=== PATIENT | female | born 1935 | race Caucasian/White ===

== ENCOUNTER 2016-11-27 17:07 | Observation (INO) | payer BC ==
--- NOTE | ~2016-11-27 | HP ---
History And Physical [place] [id number] [facility] [place]. [address] NAME: ALEJANDRA JESUS : 39 STATUS : ADM [place]de PAT#: [id number] AGE: 81 ADM/REG DATE : 11/27/16 MR#: [id number] REPORT SERV DATE: 11/28/16 DICTATED BY: ZAIRA MONZON DATE: 11/28/16 REPORT STATUS : Draft TRANSCRIBED BY: MODL DATE: 11/28/16 DATE OF ADMISSION: 11/27/2016 CHIEF COMPLAINT: Substernal chest heaviness and bilateral arm pain. HISTORY OF PRESENT ILLNESS: This is a very pleasant 81-year-old white female with no known history of CAD, states that on November 27 around 1100 hours, she experienced a debilitating chest pain that radiated down both arms to her elbows. She also reports significant fatigue and she was seen at her PCP's office. Her symptoms were disclosed, and she was sent to the emergency room via EMS. Aspirin was provided. She describes associated nausea and dizziness. Denies shortness of breath, diaphoresis, or belching. She describes the midsternal chest pain as a heaviness radiated down both arms to her elbows at its most intense, she rated it an 8/10. At the time of interview in the [facility], she rates it a 1/10. There has been no clear change in her activity except recently relocating indoor plants to the outside weighing less than 10 pounds. She denies any personal history of myocardial infarction, stroke, DVT, or pulmonary embolus. The patient was recently treated with Bactrim for UTI and states she felt nauseous and fatigue with that antibiotic, rarely has palpitations, consumes two cups of coffee some days. No syncopal episodes. Denies PND or orthopnea. PAST MEDICAL HISTORY: 1. Hypertension. 2. Cholesterol, followed by PCP. 3. Denies diabetes. 4. Depression following the of her . 5. Glaucoma. 6. Positive family history for early CAD. PAST SURGICAL HISTORY: 1. Tonsillectomy. 2. Breast augmentation. 3. Hysterectomy. 4. Cataract repair. SOCIAL HISTORY: She is with two children. She is a retired teacher. Does not have a structured exercise routine. Denies tobacco or illicits. Consumes one to two glasses of wine most days. FAMILY HISTORY: Mother with a heart attack in her 40s of a stroke in her 60s, at the age of 92. REVIEW OF SYSTEMS: A fourteen-point review of systems performed, significant for HPI. No other contributory diagnoses identified. History And Physical [address] [place]. [address] NAME: ALEJANDRA JESUS : 39 STATUS : ADM Tunde PAT#: [id number] AGE: 81 ADM/REG DATE : 11/27/16 MR#: [id number] REPORT SERV DATE: 11/28/16 DICTATED BY: ZAIRA MONZON DATE: 11/28/16 REPORT STATUS : Draft TRANSCRIBED BY: MODLynn DATE: 11/28/16 ALLERGIES: ALLERGY TO AMINOGLYCOSIDES AND GENTAMICIN, BOTH WITH TACHYCARDIA. HOME MEDICINES: Amlodipine 2.5 mg nightly, Combigan drops, right eye, Os-Rosalio 500 mg daily, Celexa 40 mg daily, Septra DS for five days complete, Ultram 50 mg three times daily p.r.n., and Ambien 5 mg nightly. PHYSICAL EXAMINATION: VITAL SIGNS: Blood pressure 139/67, pulse 61, respirations 20, temperature 97.8, O2 saturation 95% on room air. Height 5 feet 1 inch, weight 130 pounds. BMI 24.5. GENERAL: Cooperative, in no apparent distress. HEENT: Pupils 2 mm, sclera nonicteric. Nares patent. Moist mucous membranes. No xanthelasma. NECK: Trachea midline, no thyromegaly. No JVD. No bruits. LYMPH: No cervical lymphadenopathy. No supraclavicular lymphadenopathy. RESPIRATORY: Unlabored respirations. Breath sounds clear bilaterally to posterior auscultation. No wheezes or rhonchi. CARDIOVASCULAR: Regular rate. No murmur, rub or gallop appreciated. EXTREMITIES: Without edema. Pulses 2+ bilaterally. ABDOMEN: Soft, nontender, nondistended, normal bowel sounds auscultated throughout. No organomegaly. SKIN: Warm, dry extremities. No pallor, or cyanosis. PSYCHIATRIC: Appropriate affect. Alert, oriented x3. LABORATORY DATA: Troponin less than 0.02 x3. Potassium 4.8, BUN 11, creatinine 0.84, glucose 85, BNP 43. WBC 6.3, hemoglobin 12.7, hematocrit 38.0, and platelet count 328,000. EKG, sinus rhythm and sinus bradycardia. Echo 2006: EF 70%. Essentially normal study. MPI, 2011: No ischemia. ASSESSMENT AND PLAN: 1. Substernal chest pain in a patient with risk factors of hypertension and family history. The patient has been observed in the CPOU overnight to rule out myocardial infarction with serial enzymes and serial electrocardiograms and held n.p.o. We will proceed with myocardial perfusion imaging today as cardiac PET cannot be completed in patient with breast augmentation and small implant and/or chest size. The patient will be discharged home if low risk, no ischemia. To follow up with primary care physician in one to two weeks with all studies being sent to that office. 2. Fatigue. Check a thyroid stimulating hormone and free T4. 3. Hypertension. Monitor blood pressure and continue to hold home medications. ROSALINA/BALDO History And Physical [address] [address] NAME: ALEJANDRA JESUS : 39 STATUS : ADM [place] PAT#: [id number] AGE: 81 ADM/REG DATE : 11/27/16 MR#: [id number] REPORT SERV DATE: 11/28/16 DICTATED BY: ZAIRA MONZON DATE: 11/28/16 REPORT STATUS : Draft TRANSCRIBED BY: BALDO DATE: 11/28/16 Zaira Monzon MSN, PURE CULTURE OPERATOR-BC / [id number] CC: Zaira Monzon, MSN, PURE CULTURE OPERATOR-BC Lang Ferrell DO
[2016-11-27 16:24] LABS: BASOPHILS 1.1 %; BASOPHILS ABSOLUTE 0.07 10/3/uL (0.0-0.16); EOSINOPHILS ABSOLUTE 0.19 10/3/uL (0.0-0.53); ER CBC TAT 0 Hrs 03 Mins; HEMOGLOBIN 12.7 g/dL (12.0-16.0); IMMATURE GRANULOCYTES 0.2 %; IMMATURE GRANULOCYTES ABSOLUTE 0.01 10/3/uL (0.0-0.11); LYMPHOCYTES 37.1 %; LYMPHOCYTES ABSOLUTE 2.32 10/3/uL (0.67-4.30); MEAN CORPUS HGB CONC 33.4 g/dL (32.0-36.0); MEAN CORPUSCULAR HEMOGLOB 28.7 pg (26.0-34.0); MEAN PLATELET VOLUME 9.2 fL (9.2-13.0); MONOCYTES ABSOLUTE 0.44 10/3/uL (0.21-1.20); NEUTROPHILS 51.6 %; NEUTROPHILS ABSOLUTE 3.22 10/3/uL (2.02-8.40); PLATELET COUNT 328 10/3/uL (150-400); RBC DISTRIBUTION WIDTH 13.3 % (12.0-16.0); RED CELL COUNT 4.42 10/6/uL (4.0-5.6); WHITE BLOOD CELLS 6.3 10/3/uL (4.5-10.5)
[2016-11-27 16:25] LABS: MANUAL DIFF NO %
[2016-11-27 16:34] LABS: PROTIME (NOT ORD) 13.4 SEC (12.0-14.5)
[2016-11-27 16:40] LABS: A/G RATIO 1.3 (0.7-1.9); ALBUMIN 4.1 G/DL (3.5-5.0); ALKALINE PHOSPHATASE 65 U/L (45-117); BUN (BLOOD UREA NITROGEN) 11 MG/DL (6-23); CHLORIDE, SERUM 95 MMOL/L (96-112); CO2 (CARBON DIOXIDE) 26 MMOL/L (24-34); CREATININE 0.84 MG/DL (0.55-1.02); GFR AFRICAN AMERICAN 77 ML/MIN (>=60); GFR NON AFRICAN AMERICAN 66 ML/MIN (>=60); GLUCOSE, SERUM 85 MG/DL (60-99); POTASSIUM, SERUM 4.8 MMOL/L (3.5-5.3); SGOT(AST) 21 U/L (5-40); SGPT(ALT) 14 U/L (5-65); SODIUM, SERUM 131 MMOL/L (135-148); TOTAL BILIRUBIN 0.4 MG/DL (0-1.2); TOTAL PROTEIN 7.3 G/DL (6.0-8.5); TROPONIN I <0.02 NG/ML (<0.05)
[2016-11-27 16:41] LABS: GLOBULIN 3.2 G/DL (2.5-4.1)
[~2016-11-27 17:07] MED LIST: AMB10 PO; CALGLUCTAB PO; CELEXA40 MG PO; COMBIGAN0.2 MG/0.5 OPH; ESTRING2 MG VA; NEXIUM40 PO; NORV25 PO; PRILOSEC40 MG PO; TERAZOL V; TUMSROLL PO; ULTRAM50 PO; VITAMIN D OR; [UNRECOGNIZED DRUG - OTHER] PO; [UNRECOGNIZED DRUG - OTHER] V
[2016-11-27] MEDS ORDERED: NORV25 PO (18:49)
[2016-11-27] MEDS ORDERED: AMB5 PO (18:51)
[2016-11-27] MEDS ORDERED: ULTRAM50 PO (18:52)
[2016-11-27] MEDS ORDERED: CELEXA40 MG PO (18:52)
[2016-11-27] MEDS ORDERED: OS500+D PO (18:52)
[2016-11-27] MEDS ORDERED: SEPTRA DS1 TAB PO (18:53)
[2016-11-27] MEDS ORDERED: COMBIGAN0.2 MG/0.5 OPH (18:53)
[2017-03-16] MEDS ORDERED: ULTRAM50 PO ×2 (21:44→21:45)
[2017-03-16] MEDS ORDERED: NORV25 PO (21:44)
[2017-03-16] MEDS ORDERED: AMB5 PO (21:44)
[2017-03-16] MEDS ORDERED: COMBIGAN0.2 MG/0.5 OPH (21:44)
[2017-03-16] MEDS ORDERED: PRILOSEC40 MG PO (21:45)
[2017-03-16] MEDS ORDERED: PRISTIQ50 MG PO (21:45)
[2017-03-16] MEDS ORDERED: CALTRAT600 PO (21:46)
[2017-03-16] MEDS ORDERED: VITAMIN D400 UNI1 PO (21:46)
[2017-03-18] MEDS ORDERED: PLAVIX PO (15:42)
[2017-03-18] MEDS ORDERED: LIPITOR80 MG PO (15:42)
[2017-03-18] MEDS ORDERED: CEFT5 PO (15:42)
[2017-03-18] MEDS ORDERED: VITAMIN B-121000 MC1 PO (15:43)
[2017-03-18] MEDS ORDERED: ASAB PO (15:43)
== END 2016-11-29 13:28 | disposition home or self-care (01) ==
LOC: ER 17:07 → CDU1 19:16
PROVIDERS: Emergency Medicine
DX: R07.2 Precordial pain (principal); R53.83 Other fatigue; I10 Essential (primary) hypertension; F32.9 Major depressive disorder, single episode, unspecified; Z82.49 Family history of ischemic heart disease and other diseases of the circulatory system; Z90.89 Acquired absence of other organs; Z90.710 Acquired absence of both cervix and uterus; Z88.8 Allergy status to other drugs, medicaments and biological substances; Z88.1 Allergy status to other antibiotic agents; Z79.899 Other long term (current) drug therapy
CPT/HCPCS: 71010; 78452; 80053; 83880; 84484; 85025; 85610; 93005; 93017; 96374; 99285; A9270-GY; A9502; G0378; J1250; J2405